=== PATIENT | female | born 1945 | race Caucasian/White ===

== ENCOUNTER 2017-03-14 18:34 | Inpatient (IN) | payer MEDICARE, BC ==
[~2017-03-14] VITALS: Ht 152.4 cm; Wt 89.4 kg
--- NOTE | ~2017-03-14 | HP ---
PATIENT'S NAME: BUTCH ESTEBAN [facility] AGE: 71 Y [address] ROOM: [address] [place] [id number] LOCATION: [facility] ADMIT DATE: 03/14/2017 History & Physical DISCHARGE DATE: FAMILY PHYSICIAN: PHYSICIAN, UNKNOWN ATTENDING PHYSICIAN: DAMARIS OJ DATE OF SERVICE: CHIEF COMPLAINT: Stroke. HISTORY OF PRESENT ILLNESS: A 71-year-old lady with a past medical history of hypertension and multilevel spinal stenosis was admitted to the outside facility for progressing generalized as well as lower extremity weakness. A CAT scan at that time was done, which did show old lacunar infarcts. She was admitted there for physical therapy in the swing bed where she progressively got Dwarf today. She was altered mental status and was having weakness on her right side of the body and she was transferred here for further medical care. She did have an MRI at the outside facility, which did show an acute stroke lacunar type on the left. On my encounter, she is answering questions intermittently and she is not alert and oriented with flat affect and intermittently following commands. On inquiry, she is not able to give me a complete history, but she states that she is having weakness all over, but does not complain of any chest pain, any shortness of breath, any palpitations, any abdominal pain, constipation, diarrhea, headache, trouble with the eyes, or any extremity swelling. REVIEW OF SYSTEMS: All other systems reviewed and were negative except what is mentioned in the HPI. PAST MEDICAL HISTORY: Hypertension, back pain, and lacunar infarcts. ALLERGIES: NO KNOWN DRUG ALLERGIES. SOCIAL HISTORY: Occasional smoker. No tobacco abuse. FAMILY HISTORY: Attempted to obtain from outside facility and was reviewed and was negative for any premature coronary artery disease. PATIENT'S NAME: RACHNA ESTEBANCY Yogi [facility] AGE: 71 Y [address] ROOM: [id number] [place], [place] [address] LOCATION: GI ADMIT DATE: 03/14/2017 History & Physical DISCHARGE DATE: FAMILY PHYSICIAN: PHYSICIAN, UNKNOWN ATTENDING PHYSICIAN: DAMARIS JO MEDICATIONS: Being reconciled right now. PHYSICAL EXAMINATION: VITAL SIGNS: Blood pressure 146/76, respiratory rate 16, heart rate 62, and afebrile. GENERAL: No acute distress. Alert and oriented only to herself. HEENT: Head: Atraumatic, normocephalic. Eyes: Nonicteric. No pallor. Oropharynx: Very dry mucous membranes. CARDIOVASCULAR: S1 and S2. No murmurs, gallops, or rubs. LUNGS: Clear to auscultation bilaterally. ABDOMEN: Soft, nontender, and nondistended. Bowel sounds are present. EXTREMITIES: No clubbing, cyanosis, or edema. PSYCHIATRY: Very flat affect. Low volume speech. NEUROLOGIC: Very hard to perform secondary to the patient's noncooperation, but grossly she does have 3/3 power in both lower extremities and 4/5 power in bilateral upper extremities. Reflexes in the lower extremities are diminished. On gross examination, no cranial nerve deficit can be found. SKIN: No bruises or rashes noted. ENDOCRINE: No myxedema or thyromegaly noted. LABORATORY DATA: Lab work from outside facility showed a white count of 10, hemoglobin of 11, and platelets of 226. Sodium was found to be 146, potassium of 3.0, chloride of 101, bicarb of 32, BUN of 41, creatinine of 1.2, and calcium of 9.5. MRI was repeated today of the head, which was positive for stroke showing confluent large lacunar type infarct in mid left pan radiata corresponding to the patient's right weakness. It also showed advanced vasculopathic white matter changes, which would be advanced for any age. ASSESSMENT: 1. Acute ischemic stroke/lacunar stroke. 2. Vasculopathic dementia. 3. Acute kidney injury. 4. Hypertension. 5. Hypernatremia. 6. Hypokalemia. PLAN: We are going to admit this lady and start the stroke pathway. MRI and CT scan are already done. We will obtain a Neurology consultation in the morning and order a CTA if recommended by Neurology. Meanwhile, we will correct her hypernatremia with hypotonic fluids and replace her potassium. We will start her on aspirin and statin. Neuro checks and lab monitoring will be done. We PATIENT'S NAME: BUTCH ESTEBAN [facility] AGE: 71 Y [address] ROOM: [place] [address] LOCATION: [facility] ADMIT DATE: 03/14/2017 History & Physical DISCHARGE DATE: FAMILY PHYSICIAN: PHYSICIAN, UNKNOWN ATTENDING PHYSICIAN: DAMARIS JO are also going to obtain HbA1c as well as TSH level. PT, OT, and rehab consultation will be made. Potassium is going to be replaced. We will follow up on this patient and make further recommendations. MD DOM LIEBERMAN/caro /[id number] D: [id number] T: [id number] HISTORY & PHYSICAL
--- NOTE | ~2017-03-14 | CON ---
PATIENT'S NAME: BUTCH ESTEBAN [facility] AGE: 71 Y [address] ROOM: [address] [address] LOCATION: GICU ADMIT DATE: 03/14/2017 Consultation DISCHARGE DATE: FAMILY PHYSICIAN: PHYSICIAN, UNKNOWN ATTENDING PHYSICIAN: DAMARIS JO REFERRING PHYSICIAN: DAMARIS COLE MD A consult for Dr. Schaeffer, hospitalist. HISTORY OF PRESENT ILLNESS: This 71-year-old is referred for rehab evaluation, admitted on 03/14/2017. Per my looking at her notes, she is unable to give any history, and my examination and my notes are from the chart and from examination of the patient herself. She was admitted with progressive weakness and altered mental status. She herself unable to give history. She does not complain now of any pain. No shortness of breath. No fever. No cough. Denied any stress at the present time. She answers questions only very much short, one word or two words, and she has flat affect and looks at the ceiling throughout all day. Her voice is clear and not wet. Does not have facial droop at the present time. Shook her head that she has no visual problems. Can hear well. Her voice, as I mentioned, clear. Tongue and soft palate are moving symmetrical; however, she remains in a dazed status. Breathing normally, and not in acute distress. PAST MEDICAL HISTORY: Past history of significance that I could gather is history of hypertension and chronic back pain. PHYSICAL EXAMINATION: GENERAL: She is, at the present time, alert, not oriented. VITAL SIGNS: Blood pressure 135/62, temperature 98.2, pulse 52, and respiration rate 18. She is 5 feet tall and weighs 87.9 kg. NEUROLOGIC: She can move all 4 seemingly to me. It is the right side that is a little bit less coordinated and probably less strong in comparison to the left. At the present time, she is continent of her bowel and bladder. CHEST: Clinically clear. HEART: Regular sinus rhythm. ABDOMEN: Soft. MEDICATIONS: She is on the following medications: 1. Lipitor. 2. Glucagon. 3. Dextrose. 4. Glucose. PATIENT'S NAME: BUTCH ESTEBAN [facility] AGE: 71 Y [address] ROOM: [id number] [place], [place] [address] LOCATION: [facility] ADMIT DATE: 03/14/2017 Consultation DISCHARGE DATE: FAMILY PHYSICIAN: PHYSICIAN, UNKNOWN ATTENDING PHYSICIAN: DAMARIS JO 5. Insulin aspartate. 6. Aspirin. 7. Tylenol. 8. Potassium chloride. 9. Labetalol p.r.n. ASSESSMENT AND PLAN: She will be, at the present time, initiated on PT, OT, and speech. Please see the orders. I will continue to follow on her alongside with you, and if she is unable to go home, fairly able to be managed on outpatient basis. I will be happy to take her to rehab. Thank you for this referral. MD MERRILL ARGUELLES/carmenl /[id number] d: 03/15/17 1139 t: 03/16/17 0810, CONSULTATION REPORT
--- NOTE | ~2017-03-14 | CON ---
PATIENT'S NAME: BUTCH ESTEBAN [facility] AGE: 71 Y [address] ROOM: [id number] [place], [place] [address] LOCATION: GICU ADMIT DATE: 03/14/2017 Consultation DISCHARGE DATE: FAMILY PHYSICIAN: PHYSICIAN, UNKNOWN ATTENDING PHYSICIAN: DAMARIS JO DATE OF CONSULTATION: 03/15/2017 REFERRING PHYSICIAN: DAMARIS COLE MD REASON FOR CONSULTATION: The patient was seen on neurologic consultation at the request of Dr. Nam Mcduffie on 03/15/2017. HISTORY OF PRESENT ILLNESS: Ms. Esteban is a 71-year-old female, who had previously been seen in Neurologic Clinic for consultation back in November 22, 2016. She was sent to our clinic for evaluation of potential Parkinson's disease. Over the course of the past year, she has been reported to have much more slowing in her gait. Initial symptoms of slowing and increased tone had been noted in her left upper extremity where there was a case to be made that she has idiopathic Parkinson's due to her presentation that was asymmetrical. She was clearly noted to be bradykinetic with a stooped posture, decreased arm swing on the left, increasing hypo-mimicry or facial expression was blunted. Her other issue at that time, was chronic low back pain for which she was experiencing symptoms of lumbar claudication and she was finding it difficult to get around such as doing shopping at home due to extreme low back pain radiating into the back of her legs. The patient did have a history of at least two back procedures back in November and April of 2016. A history of cervical surgery determined that the patient has multilevel spinal stenosis, actually ended up coming to the [facility] for workup for her low back pain as well as lower extremity weakness. Over the past week, the patient's had said that she had gotten much more generalized weak than usual as well as potentially some more focal weakness now this time on the right arm and leg. Per the says that she was not really moving the right extremity very well. At [facility], a CAT scan was performed, which showed some evidence of an acute or subacute stroke into the left putamen region of the brain likely consistent with the patient presenting with more focal slowing of the right side. The patient did not have any particular new symptom other than some motor weakness, but was possibly having some difficulty in word finding as well as naming objects and parts of the objects she still has presently. Based upon the evidence that this is a somewhat new stroke into the left basal ganglia and may be associated with some mild aphasia. The patient was transferred to our hospital for further workup. Furthermore at [facility], the patient was noted to have an elevated TSH to 177 at our hospital and confirmed at [facility] also elevated to that PATIENT'S NAME: BUTCH ESTEBAN [facility] AGE: 71 Y [address] ROOM: [id number] [place], [place] [address] LOCATION: [facility] ADMIT DATE: 03/14/2017 Consultation DISCHARGE DATE: FAMILY PHYSICIAN: PHYSICIAN, UNKNOWN ATTENDING PHYSICIAN: DAMARIS JO. Thus upon her admission to the hospital, her mental status was considered as a presentation for myxedema type of confusion with some mild aphasia over the past 48 hours upon her admission to the hospital. She started to improve in answering questions appropriately, but it was clear that she still had difficulty with naming objects as well as orientation to time and situation. PRIOR MEDICAL HISTORY: History of hypertension, chronic low back pain, and two surgeries on her back in 2016. SOCIAL HISTORY: She denies any alcohol use. She was a former smoker. She lives with her , who is present and very hard of hearing. Daughter was also present today. ALLERGIES: NO KNOWN DRUG ALLERGIES. FAMILY HISTORY: Not obtainable presently. REVIEW OF SYSTEMS: Stalin presented with new onset of right upper extremity, right lower extremity subtle weakness that seems to be improving of the course of the last 48 hours. She also had deficits with cognition and confusion to time, place, location, and also diminished speech output. Furthermore, she was noted to have aphasia to identifying objects and parts of objects, and basic reading. The aphasia aspect seem to be improving over the past 48 hours of her admission. PHYSICAL EXAMINATION: GENERAL: The patient was sitting upright in the bed. She looked happy and content. She answered basic questions appropriately with yes or no answers. She was confused as to location, but did not appear to be agitated. She was able to read all the words on our aphasia card including full sentences and had improvement in naming animals, which could not recall even one out of five objects after 2 minutes as well as not perform high functioning testing such as drawing or writing out the words that she sees. She did not appear to be tired. She had a bit of low volume to her voice. She noted to have decreased facial expression. That was consistent baseline with her Parkinson's. She is noted to likely have idiopathic Parkinson's disease. She presented with left upper extremity increased tone than what we see today on physical exam with some mild weakness in her right upper extremity. The rest of the review of systems is within normal limits. PATIENT'S NAME: BUTCH ESTEBAN [facility] AGE: 71 Y [address] ROOM: [id number] [place], [place] [address] LOCATION: [facility] ADMIT DATE: 03/14/2017 Consultation DISCHARGE DATE: FAMILY PHYSICIAN: PHYSICIAN, UNKNOWN ATTENDING PHYSICIAN: DAMARIS JO VITAL SIGNS: Pulse was 62 and regular, respiration rate 12, blood pressure 146/76, temperature is afebrile. Cranial nerves 2 through 12 was intact. Motor exam revealed generalized give-way weakness in all the limbs, but particularly a 4/5 power in the right upper extremity, but full power in the right lower extremity. There is slight increased tone in the left upper extremity. No evidence of any symmetrical tremors. She does not have any pain into her muscles. She withdraws to pain easily. There was normal sensation to light touch. On testing of [id number], the patient does this very slowly, but adequately there is no evidence of any dysmetria. There is no dysdiadochokinesis on testing. IMPRESSION: Ms. Esteban comes in with what appears to be an acute or subacute stroke into the left basal ganglia. Often basal ganglia strokes are associated with some mild aphasia, which should improve over the course of time. She actually is making some very good improvement even after 48 hours being in the hospital; however, the confusion that she has for self and for knowing the month and season would not be consistent with the patient having a small subcortical stroke. This is likely associated with global confusion associated hypothyroidism. Therefore, it is recommended that the patient receive IV thyroid replacement. From a standpoint of whether the patient truly has Parkinson's disease or her global slowing in mentation, being depressed was part of a syndrome of hypothyroidism. It is best that we hold her Parkinson's medications, which included Sinemet dose, reassess her in a few weeks in Neurology office when her thyroid function gets back to normal. We did have an MRI of the brain at the time of this dictation that shows the evidence for a subcortical stroke into the left basal ganglia. Distant with the patient having some mild subtle weakness on the right side, but this is also improving presently. For poststroke management, we should keep the patient on Plavix 75 mg daily as well as atorvastatin 80 mg p.o. at bedtime. The patient is currently being supplemented with levothyroxine 75 mcg per day, which is switched to oral root delivery. We would be glad to see Ms. Esteban on neurologic follow up in our office. MD CURT MOLINA/carmenl /[id number] d: 03/25/175 t: 03/25/17 1710, CONSULTATION REPORT
--- NOTE | ~2017-03-14 | DS ---
PATIENT'S NAME: BUTCH ESTEBAN [facility] AGE: 71 Y [address] ROOM: [place] [address] LOCATION: GPCU ADMIT DATE: 03/14/2017 Discharge Summary DISCHARGE DATE: 03/28/2017 FAMILY PHYSICIAN: Physician, Unknown ATTENDING PHYSICIAN: Jaren Marc PRIMARY DIAGNOSES: 1. Myxedema coma. 2. Profound hypothyroidism. 3. Supraventricular tachycardia. 4. Cerebrovascular disease with subacute lacunar infarcts. 5. Essential hypertension. 6. Moderate protein-calorie malnutrition. 7. Hypernatremia. 8. Chronic constipation. 9. Morbid obesity. 10. Diabetes mellitus type 2. 11. Deconditioning. OPERATIONS AND PROCEDURES: MRI scan of the brain obtained on 03/21/2017, demonstrated subacute infarcts in the left cerebrum and subacute ischemic infarcts in the right frontal subcortex. MRA of the brain and neck on 03/21/2017, negative for any acute process. Echocardiogram obtained on 03/19/2017, demonstrated an ejection fraction of 65% with concentric hypertrophy, moderate. Carotid Doppler ultrasound was obtained on 03/21/2017, demonstrated 1% to 39% plaque and stenosis bilaterally. HISTORY OF PRESENTING ILLNESS AND REASON FOR ADMISSION: Please refer to the H and P dictated on 03/14/2017. HOSPITAL COURSE: The patient was admitted to hospital as noted above with a presumptive diagnosis of stroke symptoms. She was seen and evaluated at an outside facility initially where imaging studies suggested the presence of old lacunar infarct. She was transferred here where stroke pathway was initiated. Additional MRI scan imaging revealed the findings as outlined above. Her clinical condition was relatively poor and she was slow to improve. Some additional laboratory workup did reveal the presence of profound hypothyroidism. It was felt that she was experiencing myxedema coma. She was placed on replacement therapy with Cytomel. Her laboratory studies were monitored and showed improvement within the first week declining by approximately 50%. Initial TSH was 177 and by the first week had resolved to 78 with a free T4 of 0.6. It was planned to continue the Cytomel and continue weekly followup until normalization of her thyroid studies. PATIENT'S NAME: BUTCH ESTEBAN [facility] AGE: 71 Y [address] ROOM: [place] [address] LOCATION: GPCU ADMIT DATE: 03/14/2017 Discharge Summary DISCHARGE DATE: 03/28/2017 FAMILY PHYSICIAN: Physician, Unknown ATTENDING PHYSICIAN: Jaren Marc She did receive physical therapy, occupational therapy, and speech therapy evaluations. Clinical progress remained slow, but generally positive. She did have a rehab evaluation, but was not felt to be a suitable candidate at this point. She did develop hypernatremia. This was felt to be due to free water deficit. Her oral intake was actually fairly good and she was encouraged to take more free water. Continued clinical follow up is recommended. Eventually, arrangements were made for her to be transferred to [facility] for continued restorative care including physical therapy, occupational therapy, and speech therapy, and eventual consideration for inpatient rehab. DISCHARGE INSTRUCTIONS: DIET: ADA 1800-calorie per day as tolerated. ACTIVITY: As tolerated. MEDICATIONS: 1. Amlodipine 5 mg p.o. daily. 2. Aspirin 81 mg p.o. daily. 3. Atorvastatin 80 mg p.o. at bedtime. 4. Os-Dru 500 mg p.o. b.i.d. 5. Vitamin D 2000 units p.o. daily. 6. Plavix 75 mg p.o. daily. 7. Colace 100 mg p.o. b.i.d. 8. Insulin NovoLog per sliding scale. 9. Insulin detemir 5 units subcu at bedtime. 10. Liothyronine 2.5 mcg p.o. b.i.d. 11. Levothyroxine 75 mcg p.o. daily. 12. Lisinopril 20 mg p.o. daily. 13. Metoprolol 12.5 mg p.o. b.i.d. 14. Senna 1 tablet p.o. at bedtime. 15. Sertraline 50 mg p.o. at bedtime. 16. Torsemide 20 mg p.o. q.a.m. 17. Acetaminophen 650 mg p.o. or NV q.4 hours p.r.n. for pain or fever. 18. Dextrose 25 IV p.r.n. for hypoglycemia. 19. Glucagon 1 mg subcu p.r.n. for hypoglycemia. 20. Glucose tablets 16 grams p.o. daily p.r.n. for hypoglycemia. 21. Milk of magnesia 30 mL p.o. q.4 hours p.r.n. for pain. 22. Tramadol 50 mg p.o. q.4 hours p.r.n. for pain. FOLLOWUP: She will follow up with her primary care provider in [place] at [facility] within the next 5 to 7 days. There will be a weekly TSH and free T4 to be followed until normalization. She will have a BMP on 03/29/2017 PATIENT'S NAME: BUTCH ESTEBAN [facility] AGE: 71 Y [address] ROOM: [place] [address] [facility] ADMIT DATE: 03/14/2017 Discharge Summary DISCHARGE DATE: 03/28/2017 FAMILY PHYSICIAN: Physician, Unknown ATTENDING PHYSICIAN: Jaren Marc and again on 03/31/2017. CONDITION ON DISCHARGE: Fair. Total time spent on discharge process 60 minutes. MD YESENIA DEGROOT/caro /[id number] d: 03/29/17 0241 t: 03/30/17 1726, DISCHARGE SUMMARY
--- NOTE | ~2017-03-14 | ECHO ---
Transthoracic Echocardiography Report (TTE) Demographics Patient Name BUTCH ESTEBAN Date of Study 03/19/2017 Patient Number [id number] Visit Number [id number] Date of 1945 Room Number O8005VJ Gender Female Number Age 71 year(s) Referring [facility] Yard Inspector Marci Acevedo RDCS, RVT, Physician MD GALVEZMS, PHYSICAL THERAPIST Tari Eastman DOCTOR NATUROPATHIC Physician Interpreting Canelo Brown A Training And Development Professional Physician MD Supervising Ordering MD/MLP Physician Nurse Stress Peanut Grader Conclusions Summary Technically difficult exam. The estimated left ventricular ejection fraction is 65%. Moderate concentric hypertrophy. Normal valvular function. Mild mitral annular calcification. Cannot exclude chordal or valvular mitral systolic anterior motion. There is no evidence of a patent foramen ovale by color Doppler . Small circumferential pericardial effusion. There is no echocardiographic evidence of cardiac tamponade. Procedure Type of Study TTE procedure:2D Echocardiogram, M-Mode, Doppler , Color Doppler. Procedure Date Date: 03/19/2017 Start: 06:28 AM Study Location: Inpatient Portable Technical Quality: Poor visualization due to lung interference. Indications:CVA. Appropriate Use Criteria: 9 Patient Status: Routine Rhythm: NSR HR: 65 bpm BP: 128/75 mmHg M-Mode/2D Measurements LV Diastolic Dimension: 4.01 cm LV Systolic Dimension: 2.31 cm LV Septum Diastolic: 1.43 cm LV PW Diastolic: 1.46 cm AO Root Dimension: 2.8 cm Cardiac Output: 3.48 l/min AV Cusp Separation: 1.7 cm RV Diastolic Dimension: 2.47 cm LA volume: 32 ml LVOT: 1.9 cm RV Base: 2.9 cm LVOT VTI: 18.9 cm RV Mid: 2.6 cm LV Stroke volume: 53.56 ml TAPSE: 2.1 cm TDI-S': 15 cm/s Doppler Measurements AV Peak Velocity: 1.12 m/s MV Peak E-Wave: 0.6 m/s AV Peak Gradient: 5.02 mmHg MV Peak A-Wave: 0.96 m/s AV Mean Gradient: 3 mmHg MV E/A Ratio: 0.63 LVOT Peak Velocity: 0.99 m/s MV P1/2t: 97 msec TR Gradient:11.7 mmHg PV Peak Velocity: 0.85 m/s Estimated RAP:8 mmHg PV Peak Gradient: 2.9 mmHg Estimated RVSP: 20 mmHg Estimated PASP: 19.7 mmHg E' Septal Velocity: 0.05 m/s A' Septal Velocity: 0.1 m/s E' Lateral Velocity: 0.04 m/s A' Lateral Velocity: 0.09 m/s Findings Left Ventricle Normal to hyperdynamic left ventricular function. The left ventricle is normal in size . Moderate concentric left ventricular hypertrophy. Diastolic assessment reveals Grade I diastolic dysfunction. Patient is unable to valsalva, therefore unable to assess for subaortic gradients. Diastolic assessment reveals Grade I diastolic dysfunction . Right Ventricle Normal right ventricle structure and function. Left Atrium Normal left atrial size. Right Atrium Normal right atrial size. Mitral Valve Trivial mitral regurgitation by color Doppler. Mild mitral annular calcification. Mild calcification of the mitral valve. Cannot rule out chordal or valvular systolic anterior motion. Aortic Valve Normal aortic valve structure and function. There is trivial aortic regurgitation. Tricuspid Valve Normal tricuspid valve structure and function. Insufficient tricuspid regurgitant waveform to assess pulmonary pressures. Pulmonic Valve The pulmonic valve is not well visualized. Pericardial Effusion Small circumferential pericardial effusion. There is no echocardiographic evidence of cardiac tamponade. Miscellaneous Suboptimal subcostal window to evaluate the IVC and interatrial septum. Pleural Effusion No evidence of pleural effusion. Signature dtt: Thomas Lemos dtd: 03/19/17 0628 Physician Self Edit
--- NOTE | ~2017-03-14 | ENPV ---
Carotid Duplex Study Demographics Patient Name BUTCH ESTEBAN Date of Study 03/20/2017 Patient Number [id number] Gender Female Date of 1945 Age 71 Visit Number [id number] Height 59.84 Accession Number [id number] Weight 189.6 Referring Tori Tapia MD Interpreting Ajith Humphries MD Physician Tari Eastman CRNA Physician Physician Ordering Physician Tori Tapia Data Warehouse Analyst [employer] Sales Executive Jalen Powell [facility] Conclusions Summary The right internal carotid artery has mild, 1-39%, plaque and stenosis. The right vertebral artery is present with antegrade flow. The left internal carotid artery has mild, 1-39%, plaque and stenosis. The left vertebral artery is present with antegrade flow. Procedure Type of Study: Cerebral:Carotid, Carotid Doppler Bilateral. Indications for Study:CVA. Appropriate Use Criteria:9 Blood Pressure:Right arm 117/57 mmHg. Patient Status:Routine. Study Location:Inpatient Portable. Technical Quality:Adequate visualization. Velocities are measured in cm/s ; Diameters are measured in cm Carotid Right Measurements Carotid Left Measurements + +--------+--------+ + + + +--------+ --------+ + + !Location !PSV !EDV !Angle !%Stenosis ! !Location !PSV ! EDV !Angle !%Stenosis ! + +--------+--------+ + + + +--------+ --------+ + + !Prox CCA !73 !14 !48 ! ! !Prox CCA !124 ! 13 !60 ! ! + +--------+--------+ + + + +--------+ --------+ + + !Dist CCA !85 !19 !60 ! ! !Dist CCA !80 ! 13 !60 ! ! + +--------+--------+ + + + +--------+ --------+ + + !Prox ICA !62 !17 !60 ! ! !Prox ICA !69 ! 9 !56 ! ! + +--------+--------+ + + + +--------+ --------+ + + !Dist ICA !55 !16 !28 ! ! !Dist ICA !48 ! 13 !26 ! ! + +--------+--------+ + + + +--------+ --------+ + + !Prox ECA !112 ! !60 ! ! !Prox ECA !76 ! !36 ! ! + +--------+--------+ + + + +--------+ --------+ + + !Vertebral !30 ! !48 ! ! !Vertebral !43 ! !60 ! ! + +--------+--------+ + + + +--------+ --------+ + + !Subclavian !56 ! ! ! ! !Subclavian !105 ! ! ! ! + +--------+--------+ + + + +--------+ --------+ + + - There is antegrade vertebral flow noted on the right side. - There is antegrade verte bral flow noted on the left side. - Add'l Measurements:ICAPSV/CCAPSV 0.85.ICAEDV/CCAEDV 1.21. - Add'l Measurements:ICAPS V/CCAPSV 0.56.ICAEDV/CCAEDV 0.98. Signature dtt: JULIANA TOBAR dtyuni: 03/20/17 1536 Physician Self Edit
--- NOTE | ~2017-03-14 | DS ---
PATIENT'S NAME: BUTCH ESTEBAN [facility] AGE: 71 Y [address] ROOM: [id number] [place] [id number] LOCATION: [facility] ADMIT DATE: 03/14/2017 Discharge Summary DISCHARGE DATE: 03/25/2017 FAMILY PHYSICIAN: Physician, Unknown ATTENDING PHYSICIAN: Jaren Marc PRIMARY DIAGNOSES: 1. Myxedema coma. 2. Severe hypothyroidism. 3. Lacunar infarcts with residual left-sided weakness. 4. Diabetes mellitus, type 2. 5. Essential hypertension. 6. Acute kidney injury. 7. Hypernatremia. 8. Depression. 9. Dyslipidemia. 10. Moderate protein-calorie malnutrition. 11. Morbid obesity. 12. Generalized weakness. OPERATIONS AND PROCEDURES: MRI scan of the brain was obtained on 03/21/2017, demonstrating subacute ischemic infarct in the left cerebrum and subacute ischemic infarct in the right frontal subcortex. MRA obtained on 03/21/2017, was normal. MRA of the neck on 03/21/2017, demonstrates no stenosis. Echocardiogram obtained on 03/19/2017, demonstrated an ejection fraction of 65%, moderate concentric hypertrophy. Carotid Dopplers obtained on 03/21/2017, demonstrated 1% to 39% plaque and stenosis bilaterally. HISTORY OF PRESENTING ILLNESS AND REASON FOR ADMISSION: Please refer to the H and P dictated on 03/14/2017. HOSPITAL COURSE: The patient was admitted to the hospital as noted above with a presumptive diagnosis of stroke. She was seen and evaluated at an outside facility where imaging studies showed old lacunar infarcts. Additional MRI scan imaging revealed findings as outlined above. She was managed on the stroke pathway. Clinical condition was poor and she was very slow to improve. Additional workup did reveal the presence of significant and profound hypothyroidism. She was felt to be experiencing myxedema coma. Her initial laboratory studies revealed a TSH of 177 with a free T4 of 0.2. T3 was not assessed. She was started on replacement therapy and clinical condition gradually improved. Within the first week, repeat TSH was approximately 50% with an improved free T4 of 0.6. It was recommended to continue with replacement therapy and continue clinical monitoring as well as weekly monitoring of TSH and free T4 until approaching the normal range. PATIENT'S NAME: BUTCH ESTEBAN [facility] AGE: 71 Y [address] ROOM: [id number] [place], [place] [address] LOCATION: [facility] ADMIT DATE: 03/14/2017 Discharge Summary DISCHARGE DATE: 03/25/2017 FAMILY PHYSICIAN: Physician, Unknown ATTENDING PHYSICIAN: Jaren Marc She received physical therapy, occupational therapy, and speech therapy evaluations. Clinical progress was slow, but positive. She did have a rehab evaluation. She was hemodynamically stable over the course of her hospital stay. By the end of the day 11th day of her hospital stay, it was felt she would be stable enough for discharge to inpatient rehab for continued therapy and restorative care. DISCHARGE INSTRUCTIONS: DIET: ADA 1800-calorie per day as tolerated. ACTIVITY: As tolerated. She will have physical therapy, speech therapy, and occupational therapy. MEDICATIONS: 1. Amlodipine 5 mg p.o. daily. 2. Aspirin 81 mg p.o. daily. 3. Atorvastatin 80 mg p.o. at bedtime. 4. Os-Dru 500 mg p.o. b.i.d. 5. Vitamin D 2000 units p.o. daily. 6. Plavix 75 mg p.o. daily. 7. Colace 100 mg p.o. b.i.d. 8. Heparin subcu 5000 units t.i.d. 9. Insulin NovoLog per mild sliding scale. 10. Insulin detemir 5 units subcu at bedtime. 11. Levothyroxine 75 mcg p.o. daily. 12. Liothyronine 2.5 mcg p.o. b.i.d. 13. Lisinopril 20 mg p.o. daily. 14. Senna 1 tablet p.o. at bedtime. 15. Sertraline 50 mg p.o. at bedtime. 16. Torsemide 20 mg p.o. q.a.m. 17. Acetaminophen 650 mg PA q.4 hours p.r.n. or p.o. q.4 hours p.r.n. for pain or fever. 18. Dextrose 25 mL IV p.r.n. for hypoglycemia. 19. Glucagon 1 mg subcu p.r.n. for hypoglycemia. 20. Glucose 16 grams p.o. daily p.r.n. for hypoglycemia. 21. Lidocaine 1% cream applied topically for IV starts. 22. Milk of magnesia 30 mL p.o. q.4 hours p.r.n. 23. Tramadol 50 mg p.o. q.4 hours p.r.n. for pain. FOLLOWUP: She will follow up on the inpatient rehabilitation unit by Dr. Portillo as well as continued followup by the Hospitalist Service. PATIENT'S NAME: BUTCH ESTEBAN [facility] AGE: 71 Y [address] ROOM: [place] [address] LOCATION: [facility] ADMIT DATE: 03/14/2017 Discharge Summary DISCHARGE DATE: 03/25/2017 FAMILY PHYSICIAN: Physician, Unknown ATTENDING PHYSICIAN: Jaren Marc CONDITION ON DISCHARGE: Fair. Total time spent on discharge process 45 minutes. MD YESENIA DEGROOT/caro /[id number] d: 03/26/170 t: 03/26/17 1729, DISCHARGE SUMMARY
--- NOTE | 2017-03-15 01:21 | NUR ---
Significant Event: Follow up:
--- NOTE | 2017-03-15 02:29 | NUR ---
Arrived by ambulatory cart at 1954. Patient came from [facility] and has been there since 03/04 for severe dehydration, fatigue, weakness, and altered mental status. Patient had MRI done today in [place] due to increased confusion and aphasia and L)ischemic stroke found. Arrived with pierce catheter and right forearm peripheral IV. History of back surgeries and hypertension. Full code.
--- NOTE | 2017-03-15 02:44 | NUR ---
Significant Event: Admitted last night at 1954. Disoriented x3. Follows commands with weakness to upper and lower extremities (more so on the right). NIHSS 25. L)ischemic stroke found on MRI in [facility] yesterday. Patient has been in [facility] since 03/04. Peripheral IV running D5 1/2 NS at 125hr. Receiving IV K+ throughout the night due to 3.2 K+ level. Q6h accuchecks. Shore catheter present on admission. Follow up: Neuro consult today
[2017-03-15 05:28] LABS: BASOPHIL % 0.1 %; EOSINOPHIL # 0.1 K/uL (0.0-0.5); EOSINOPHIL % 0.5 %; HEMATOCRIT 35.2 % (33.0-46.0); HEMOGLOBIN 11.2 g/dL (10.0-15.0); IMMATURE GRANULOCYTE # 0.1 K/uL (0.0-0.3); IMMATURE GRANULOCYTE % 0.9 %; LYMPHOCYTE # 0.6 K/uL (0.8-4.0); MCH 33.6 pg (27.0-34.0); MCHC 31.8 gm/dL (32.0-36.5); MCV 105.7 fl (83.0-98.0); MONOCYTE # 0.5 K/uL (0.0-1.0); MONOCYTE % 5.7 %; MPV 12.2 fl (9.4-12.4); NEUTROPHIL # (ANC) 8.3 K/uL (1.8-7.8); NEUTROPHIL % 86.8 %; NRBC % 0 /100WBC (0-0.00); PLATELET COUNT 205 K/uL (150-450); RBC 3.33 M/uL (3.50-5.50); RDW-CV 14.7 % (11.9-14.6); WBC 9.5 K/uL (4.0-11.0)
[2017-03-15 05:49] LABS: ALBUMIN 3.5 gm/dL (3.5-5.0); CALCIUM 8.8 mg/dL (8.5-10.5); CREATININE 1.1 mg/dL (0.5-1.1); TOTAL BILIRUBIN 0.4 mg/dL (0.0-1.5); TOTAL PROTEIN 7.5 g/dL (6.0-8.4)
--- NOTE | 2017-03-15 08:12 | NUR ---
ROUTINE CVA NUTRITION ED CONSULT RECEIVED. WILL COMPLETE DIET ED APPROPRIATE PRIOR TO DISMISSAL.
[2017-03-15] MEDS ORDERED: DEMADEX20 MG (14:14)
[2017-03-15] MEDS ORDERED: NEURONTIN100 MG PO (14:14)
[2017-03-15] MEDS ORDERED: DEMADEX20 MG PO (14:15)
[2017-03-15] MEDS ORDERED: PRINIVIL (ZESTR20 MG PO (14:16)
[2017-03-15] MEDS ORDERED: MEDROL4 MG PO (14:16)
[2017-03-15] MEDS ORDERED: COMTAN200 MG PO (14:18)
[2017-03-15] MEDS ORDERED: SINEMET 25-1001 EACH PO (14:19)
[2017-03-15] MEDS ORDERED: ULTRAM50 MG PO (14:19)
[2017-03-15] MEDS ORDERED: TYLENOL325 MG PO (14:23)
--- NOTE | 2017-03-15 18:19 | NUR ---
Significant Event: opens eyes spontaneously. NIHSS=5. does not respond to orientation questions except for second assessment when she stated her last name was "damien". does answer a few questions "no" such as are you in pain, do you have any numbness/tingling or dullness of sensation. follows commands with equal week strength throughout. speech is clear when she does speak. TSH noted to be 177 today. cortisone 100mg IV q 8 hours ordered, synthroid 200 MCG IV now then 50mg po daily ordered and cytonel 5 MCG po now ordered then 2.5 po Q 8 hours x 3. Normal saline at 50ml/hr. Takes meds whole. Regular diet. full lift with transfers. Shore cath. Room air. Accuchecks Q 6 hours. Patient's and daughter were here today. He will not be able to return until Friday when he has someone to bring him to [place] because he cannot drive. He requested that the doctors/care management be updated he wishes for her to return to [facility] for rehab/strengthening when ready with his plan for her to return home eventually.
--- NOTE | 2017-03-16 05:33 | NUR ---
Significant Event: The patient is Alert, oriented to self at times. Denies Numbness and Tingling. Moves all extremities spontaneously and to command. Generalized weakness noted. NIHSS 6. Up with Full Lift. Repetitive at times and does well with yes/ no questions. Pupils are equal and reactive. Accu checks Q6H. Denies Pain. VSS. On room air. Shore draining yellow urine. Generalized bruising and edema. PIV to the Right forearm infusing NS at 50ml/hr. Needs help eating. Follow up:
--- NOTE | 2017-03-16 17:51 | NUR ---
Significant Event: patient is alert. only responded first name to aftn assessment. did not respond to any further orientation questions. does respond yes/no appropriately. does follow directions. NIHSS=6. Denies pain. generalized weakness. tele- NSR. room air. pierce cath. No BM. IV right forearm with NS infusing at 50ml/hr. full lift with transfers. stood with therapy but would not take steps. takes meds whole. Cardiac diet.
--- NOTE | 2017-03-17 04:52 | NUR ---
Significant Event: The patient is Alert and Oriented x1, knows her name at times. Answers simple questions, good with yes/no questions. NIHSS 6. Denies Numbness and Tingling. Moves all extremities spontaneously and to command. Generalized weakness. Up with Full Lift. Denies Pain. VSS, On room air. Shore Draining yellow urine. Generalized edema. Scattered bruising to extremities. PIV to the Right Forearm infusing NS at 50ml/hr. Accu checks ACHS. Follow up:
[2017-03-17 04:59] LABS: HEMOGLOBIN 10.7 g/dL (10.0-15.0); IMMATURE GRANULOCYTE # 0.1 K/uL (0.0-0.3); LYMPHOCYTE # 0.6 K/uL (0.8-4.0); LYMPHOCYTE % 5.7 %; MCH 34.4 pg (27.0-34.0); MCHC 33.4 gm/dL (32.0-36.5); MCV 102.9 fl (83.0-98.0); MONOCYTE # 0.4 K/uL (0.0-1.0); MONOCYTE % 3.8 %; MPV 12.1 fl (9.4-12.4); NEUTROPHIL % 89.5 %; NRBC % 0 /100WBC (0-0.00); PLATELET COUNT 189 K/uL (150-450); RBC 3.11 M/uL (3.50-5.50)
[2017-03-17 05:12] LABS: ALBUMIN 3.2 gm/dL (3.5-5.0); ANION GAP 11.5 (10.0-19.0); CALCIUM 8.7 mg/dL (8.5-10.5); POTASSIUM 3.5 mMol/L (3.7-5.1)
[2017-03-17 05:13] LABS: MAGNESIUM 2.8 mg/dL (1.8-2.6)
--- NOTE | 2017-03-17 09:03 | NUR ---
F/U D/T DIET ED CONSULT. PT A/O X 1. NO APPROPRIATE FOR NUTRITION ED. WILL ASSIST NEEDED.
--- NOTE | 2017-03-17 13:34 | NUR ---
Significant Event: VSS, DOES RUN HTN 160'S MOST OF THE TIME. PATIENT ALERT TO SELF ONLY. FOLLOWS COMMANDS. VERY SLOW TO RESPOND. GENERALIZED WEAKNESS. DENIES NUMBNESS/TINGLING. PUPILS 4MM, BRISK. 1-2+ EDEMA NOTED. LUNGS CLEAR AND DIM ON ROOM AIR. DENIES PAIN SO FAR THIS SHIFT. UP WITH FULL LIFT. IV IN RT FOREARM NOW SALINE LOCKED. CARDIAC DIET, 1:1 FEEDER. K+ TODAY WAS 3.5 SO 40 MEQ TOTAL OF KCL GOING TO BE GIVEN. STROKE EDUCATION GIVEN TODAY. NIHSS =5 Follow up: ALARMS. NEURO STATUS. ACCUCHECKS AC/HS. SWINGBED EVENTUALLY?
--- NOTE | 2017-03-17 16:00 | NUR ---
Pt does not have family in room and per note on the chart will be coming tomorrow and he would like the pt to return back to [facility] when ready. I did call Charito at [facility] and yes they had her there and will relook at her when closer to return. I did fax initial information to her today. WIll continue to follow.
--- NOTE | 2017-03-18 04:07 | NUR ---
Significant Event: Follow up: PATIENT ALERT AND ORIENTED TO SELF ONLY. FOLLOWS SIMPLE COMMANDS. GENERALIZED STIFFNESS AND WEAKNESS. DENIES NUMBNESS, TINGLING, AND PAIN THIS SHIFT. PUPILS 4MM/BRISK. 1-2+ EDEMA IN EXTREMITIES. LUNGS CLEAR AND DIMINISHED ON ROOM AIR. UP WITH FULL LIFT. VOIDS LIGHT YELLOW URINE VIA DARDEN CATHETER. 1:1 FEEDER ON CARDIAC DIET. ACCU CHECKS AC/HS. COMPLIANT WITH ALL CARES THIS SHIFT.
[2017-03-18 06:06] LABS: ALBUMIN 3.4 gm/dL (3.5-5.0); CALCIUM 8.7 mg/dL (8.5-10.5); CREATININE 0.9 mg/dL (0.5-1.1); PHOSPHORUS 2.7 mg/dL (2.5-4.9)
--- NOTE | 2017-03-18 16:16 | NUR ---
Introduced self and role of care management to pt's who is very [place] and her sister Eugenio. She stated her sister has not been really well since last April and it started with her back. She lately her mind is not as clear as it used to be. [facility] if [facility] the [facility] place for her. I did mention [facility] if qualifies but she got tearful and wanting to be closer to home. She see's Viktoria Fraser APRN there. They had more medical questions so I did go find Dr Valle and she will be down to speak with family along with pt. Will continue to follow.
--- NOTE | 2017-03-18 17:15 | NUR ---
Patient alert but disoriented X3. Patient follows commands well and responds appropriately to simple conversation. Denies numbness, tingling and pain. Vital signs stable. Lungs clear and dimished. O2 Sats stable on 1L. Shore catheter with 1250 mL output. Urine light orange with foul smell. 1:1 feeder on cardiac diet. Patient swallows food and thin liquids well. Accu checks AC/HS without need for insulin this shift. Patient remains a full lift.
--- NOTE | 2017-03-18 17:39 | NUR ---
03/18/17: MICHELLE MURRIETA RN HAS READ/REVIEWED ISABELLE ([facility] STUDENT) AND MINESH ([facility] STUDENT) CHARTING AND AGREES.
--- NOTE | 2017-03-19 05:06 | NUR ---
Significant Event: The patient is Alert and Oriented x1, knows her name most of the time. Aphasic, will answer simple questions and is good with yes/no questions. NIHSS 6. Pupils are equal and reactive. VSS. On 1L oxgen per NC. Up with Full Lift. Denies Pain. Generalized weakness noted. PIV to ther Right Forearm saline locked. 1:1 feeder. No BM on record since admit, scheduled BM meds given as well as a suppository, no results at this time. Bruising to her extremities. Abrasions to her arms. Generalized edema. Shore draining. Accu checks ACHS. Follow up:
--- NOTE | 2017-03-19 11:14 | NUR ---
A-SCREENED D/T LOS ALERT; ORIENTED X1. APHASIC. 1:1 FEEDER. GENERALIZED EDEMA HT: 60 IN. WT: 86.0 KG. BMI: 37.0. IBW: 45 KG LABS: NA 142, K+ 3.0, GLU 123, BUN 23, SMOKING PIPE MOUNTER 0.9, ALB 3.4 MEDS: CYTOMEL, LIPITOR, COLACE, SENOKOT, LEVEMIR, NOVOLOG (MILD SS), ULTRAM, PROTONIX. DIET RX: CARDIAC. PO INTAKE HAS BEEN 0-75%; AVG IS 47% EST NUTR NEEDS: 2814-1006 KCALS (15-20 KACLS/KG) 68-90 GM PROTEIN (1.5-2.0 GM/KG IBW) 1 ML FLUID/KCAL D-AT NUTRITION RISK W/INADEQUATE ORAL INTAKE R/T ALTERED APPETITE SECONDARY TO ALTERED LOC AEB INTAKE RECORDS, CHART REVIEW. I-START ENSURE COMPACT TID W/MEALS M/E-GOAL: PO INTAKE >/=50% BY NEXT F/U 1)F/U PO INTAKE, SUPPLEMENT TOLERANCE, AND POC IN 2-3 DAYS 2)ASSIST NEEDED
--- NOTE | 2017-03-19 12:56 | NUR ---
I called and spoke with Mariann and she thinks she would be a wonderful candidate for GIRP. Wondering when she would be ready and I thought end of week, w/e or early next week. WIll talk with md and see and follow.
--- NOTE | 2017-03-19 16:21 | NUR ---
Significant Event: PT ALERT; ORIENTED TO LAST NAME ONLY AT TIMES. SLOW TO RESPOND/APHASIC. FOLLOWS SIMPLE COMMANDS. PERRLA. VERY FLAT AFFECT. GENERALIZED EDEMA. O2 AT 1 LITER PER NASAL CANNULA. HAS HAD SEVERAL LOOSE BM'S THIS SHIFT. DARDEN D/C'D AT 1400; NO VOID YET. IV TO R)FA SALINE LOCKED. HEAVY 2-ASSIST/FULL LIFT. POOR APPETITE; 1:1 FEEDER. TAKES MEDICATIONS WHOLE, WITH WATER. DENIES ANY PAIN. AC/HS ACCUCHECKS WITH MILD SLIDING SCALE. Follow up: CONTINUE TO MONITOR.
--- NOTE | 2017-03-20 02:47 | NUR ---
Significant Event: Oriented to self. Aphasic and answers many yes/no questions without difficulty. 1-2L O2 NC throughout night. 2A full lift for transfers. Peripheral IV to right forearm SL'd. Frequent repositioning and incontinence. May need to crush medications today due to difficulty swallowing pill yesterday. ACHS accuchecks on mild scale and scheduled Levemir administered. Poor appetite. 1:1 feeding assistance. Weakness to upper and lower extremities. NIHSS 10. Denies pain throughout the night. Follow up:
--- NOTE | 2017-03-20 14:12 | NUR ---
Significant Event: VSS. PATIENT ALERT TO SELF ONLY. VERY SLOW TO RESPOND. FOLLOWS COMMANDS. GENERALIZED WEAKNESS NOTED. APHASIA. PUPILS 4MM, BRISK. TRACE EDEMA TO LOWER EXTREMITIES. LUNGS CLEAR AND DIM ON ROOM AIR. DENIES PAIN SO FAR THIS SHIFT. IV IN RT FOREARM SALINE LOCKED. UP WITH FULL LIFT. ALARMS ON FOR SAFETY. NIHSS= 11 TODAY. INCONTINENT OF URINE. ACCUCHECKS AC/HS. Follow up: NEURO STATUS. CRUSH MEDS IN APPLESAUCE EXCEPT THYROID MEDICINE. CAROTID DOPPLARS TO BE DONE TODAY.
--- NOTE | 2017-03-20 14:58 | NUR ---
I spoke with DR Valle regarding rehab and she will see pt and let me know maybe when. I did update Mariann today and will give sister/ a call and see what they think. Mariann maybe looking at this weekend. WIll touch base tomorrow.
[2017-03-21 06:10] LABS: CREATININE 1.1 mg/dL (0.5-1.1)
--- NOTE | 2017-03-21 07:06 | NUR ---
Significant Event: Oriented to self. 2A full lift for transfers. VSS. Aphasic and able to answer yes/no questions. 1L O2 NC. Peripheral IV to right forearm SL'd. Repositioned frequently and has frequent incontinence. Crush medications except thyroid medication due to difficulty swallowing pills. ACHS accuchecks and scheduled Levemir administered. Poor appetite, 1:1 feeding assistance. NIHSS 12. Denies pain or discomfort. Follow up:
--- NOTE | 2017-03-21 08:45 | NUR ---
A - NUTRITION F/U. A/O X 1. NO NEW LABS. WT UP 4# SINCE ADMIT. PT W/ 1+ EDEMA T/O. DIET: CARDIAC W/ ENSURE COMPACT TID. INTAKE SIP/BITES TO 75%. D - AT RISK W/ INADEQUATE ORAL INTAKE R/T DECREASED APPETITE AEB INTAKE RECORD. I - GOAL: 50-75% INTAKE BY DISMISSAL. M/E - REC LIBERALZING DIET TO REGULAR. WILL F/U IN 4-5 DAYS.
--- NOTE | 2017-03-21 12:59 | NUR ---
Significant Event: VSS. PATIENT ALERT TO SELF ONLY. FOLLOWS COMMANDS. GENERALIZED WEAKNESS. LUNGS CLEAR AND DIM ON 1 LITER. IV IN RT FOREARM SALINE LOCKED. UP WITH FULL LIFT. ALARMS ON FOR SAFETY. PATIENT DOWN FOR MRI/MRA AT THIS TIME. INCONTINENT OF BOWEL /BLADDER. ACCUCHECKS AC/HS. 1:1 FEEDER. Follow up: GIRP VS SWINGBED? NEURO STATUS. CRUSH MEDS
--- NOTE | 2017-03-21 17:20 | NUR ---
I spoke with sister Jenna on the phone this am and discussed dc plans regarding skilled and acute rehab. She wants the best for her and is fine with our rehab but is out of town so to call his son Teddy [phone] and talk with him because can not hear. I then spoke with DR Valle and Mariann and plan will be GIRP on Friday at 0900 and give it a chance. I called up Teddy and spoke with his Britney and discussed dc plans and acute rehab and [facility] and she states lets do the acute rehab and see and go from there. They will get her down to see her as often as they can and they are coming tomorrow. I told her GIRP on Friday and she agree's to this and will update . I did tell DR Valle. Will continue to follow.
--- NOTE | 2017-03-22 05:45 | NUR ---
Shift Summray: PATIENT DISORIENTED TO PERSON/PLACE. ORIENTED TO TIME OCCASSIONALLY. NIHSS 11. APHASIC. FLAT AFFECT. GENERALIZED WEAKNESS, FOLLOWS COMMANDS. TRACE EDEMA THROUGHOUT. VSS. PATIENT IS ON 1L NC. 1-1 FEEDER. DECREASED APPETITE. ACTIVE BOWEL SOUNDS. INCONTINENT OF URINE. FULL LIFT. ACCUCHECKS ACHS. Q2H TURN. CRUSH MEDICATIONS IN APPLESAUCE EXCEPT THYROID.IV R) FOREARM SL. Follow Up: GIRP FRIDAY?
--- NOTE | 2017-03-22 17:26 | NUR ---
PATIENT ALERT TO SELF. DISORIENTED TO PERSON/PLACE. APHASIC. NIHSS 9. FLAT AFFECT. GENERALIZED WEAKNESS. FULL LIFT. TRACE EDEMA TO EXTREMITIES. 1:1 FEEDER. SMALL BM THIS AM. INCONTINENT. GENERALIZED BRUISING TO ARMS/LEGS. R HAND SALINE LOCK. ACHS ACCU CHECKS WITH NO COVERAGE. CARDIAC DIET. DECREASED APPETITE. MEDS CRUSHED IN APPLESAUCE. PLAN IS FOR REHAB ON FRIDAY.
--- NOTE | 2017-03-23 07:05 | NUR ---
Significant Event: Oriented to person. Remains aphasic with weakness to upper and lower extremities. 2A full lift for transfers. VSS on 2L O2 NC. Takes medications crushed in applesauce except thyroid medication. ACHS accuchecks and no s/s insulin needed tonight. Needs 1:1 assistance during meals. Calm and cooperative with cares. Denies pain throughout night. Follow up:
--- NOTE | 2017-03-23 16:14 | NUR ---
Patient alert and disoriented. Follows commands. Flat affect but does seem to be talking more. NIHSS 10. On 2L of O2 this am but was able to be taken off once awake. Incontinent of bladder/bowel. Small bm this shift. Up to recliner. Full lift. Scattered bruising/scabs. R hand saline lock. Cardiac diet. 1:1 feeder. ACHS accu check. No coverage needed. Cooperative with cares.
--- NOTE | 2017-03-24 03:58 | NUR ---
Significant Event: Oriented to person. Appears to be less aphasic tonight compared to the past and is able to form more words when asked questions and was able to read some sentences and identify pictures during the stroke scale. NIHSS 10. Remains weak to upper and lower extremities. Follows commands. ACHS accuchecks with mild sliding scale. 1L O2 NC throughout the night. Medications crushed and given with applesauce except thyroid medication. 1:1 assistance at meal time. Poor appetite and intake. Right hand IV saline locked. 2A full lift for transfers. Frequent repositioning and incontinence. Calm and cooperative with cares. Follow up: [facility] Friday??
--- NOTE | 2017-03-24 20:04 | NUR ---
Significant Event: Patient alert to self only. Pupils 4mm, brisk. Denies numbness/tingling. NIHSS= 10. NSR on tele. VSS, on 1L O2. Incontinent of bowels and bladder, brief on. Very poor appetite. 1:1 feeder. Cardiac diet with regular liquids. Meds crushed with applesauce. Accucheks AC/HS. Scattered bruising noted. No changes in patient condition throughout shift. IV to R) hand, saline locked. Follow up:
--- NOTE | 2017-03-25 03:53 | NUR ---
Significant Event: Patient is alert and oriented to self. Drowsy at times. Follows commands. PERRLA. Slow, soft, aphasic speech. NIHSS-10. SB to NSR. Generalized weakness. 1+ edema to BLE. 2L of O2 per NC. Cardiac diet. Accu checks ACHS-mild SS. Takes pills crushed with applesauce. Incont of B/B. 2A full lift. R)hand PIV-sl'd. Follow up: GIRP TODAY.
--- NOTE | 2017-03-25 10:17 | NUR ---
A - NUTRITION F/U. A/O X 1. NO NEW LABS. DIET: CARDIAC W/ ENSURE COMPACT TID. INTAKE 0-25%. PT IS A 1:1 FEEDER. D - AT RISK W/ INADEQUATE ORAL INTAKE R/T DECREASED APPETITE AEB INTAKE RECORD. I - GOAL: ALTERNATE FEEDING ROUTE TO MEET PT NEEDS. M/E - CONSIDER TF W/ JEVITY 1.5 TO RUN AT 80 ML/HR X 12 HRS AT NOC = 1440 KCALS, 60 GM PROTEIN, 730 ML FREE H20. FLUSH W/ 175 ML H20 QID. WILL F/U IN 2-4 DAYS.
--- NOTE | 2017-03-25 14:28 | NUR ---
I got a call this am from the floor and Dr Cleaning came over to assess and does not want to take pt to rehab today. I left a vm with Mariann. I then spoke with nursing if they updated family and they did not. I called Britney her daughter in law and explained at this time they do not feel she can tolerate or particiapate for the intensive therapy. Britney stated she understands so I explained need to look at [facility] or [facility]. She states she spoke with [place] and would like [facility] as first choice then the [facility] in [place]. I then spoke with Mariann and she stated Dr Cleaning will relook at her tomorrow. I did call and left a vm with [facility] for [facility] but she was at lunch. I faxed the referral.
--- NOTE | 2017-03-25 16:18 | NUR ---
I left another Uyen at [place].
--- NOTE | 2017-03-25 19:53 | NUR ---
Significant Event: ALERT, ORIENT TO PERSON. SPONTANEOUS MOVEMENT OF ALL EXTREM. LEFT EXTREM WEAKNESS. STROKE SCALE DONE BY LUIS M SCORED 11. SATS 93% ON 2L OXYGEN. LAST BM ON 03/23. ACHS BGLU WITH SSI. CARDIAC DIET. MEDS CRUSHED IN APPLESAUCE EXCEPT SYNTHROID. LIKES TO EAT FRESH FRUIT. NUTRITION RECOMMENDING TUBE FEED. R)HAND SL. 2 ASSIST/LIFT UP TO CHAIR. URINE AND STOOL INCONTINENCE. 1:1 FEEDER. Follow up: TO RE-EVAL FOR GIRP??
--- NOTE | 2017-03-26 07:30 | NUR ---
Significant Event: Oriented to person. Weakness to extremities and follows commands. NIHSS 10. Denies numbness or tingling. VSS on 2L O2 throughout the night. ACHS accuchecks on mild scale. IV to right hand SL'd. Takes medications whole 1 at a time with water. 1:1 assistance at meal time. Frequent incontinence and repositioning. 2A full lift for transfers. Follow up:
--- NOTE | 2017-03-26 13:35 | NUR ---
I did get a call from Uyen at [facility] they will accept pt and can today or in the am. I also got a call from the swingbed in [place] they can accept as well. I spoke with Mariann and lo and pt is not ready for acute rehab yet. I then called up Britney her daughter in law so she can speak with Giovanni her and she states they want to go to [place] and her sister Jenna also agree's. When speaking with Britney I encouraged ther to call Uyen to discuss arrangements and get back to me. Britney called back and they will plan tomorrow for transfer at 10 am on . I also spoke with Uyen and faxed the orders and time for 10 am will work. I updated Dr Henning and nursing. WIll continue to follow and assist .
--- NOTE | 2017-03-26 18:00 | NUR ---
PATIENT ALERT AND ORIENTED TO SELF. FOLLOWS COMMANDS AT TIMES. 10 NIHSS. APHASIA IS GETTING BETTER, HAS CONVERSATION AT TIMES. 1-2L OF O2 THIS SHIFT. VSS. LUNGS CLEAR AND DIM. INCONTINENT OF URINE. [facility] THIS AM. ACHS ACCU CHECKS. 1:1 FEEDER. R HAND SALINE LOCKED. FULL LIFT. PILLS CRUSHED IN APPLESAUCE. PLANS TO GO TO [facility] TOMORROW.
[2017-03-26 21:29] LABS: CALCIUM 10.2 mg/dL (8.5-10.5); CREATININE 1.5 mg/dL (0.5-1.1); POTASSIUM 3.3 mMol/L (3.7-5.1)
[2017-03-26 21:30] LABS: ANION GAP 9.3 (10.0-19.0)
--- NOTE | 2017-03-27 02:43 | NUR ---
0215 PATIENT ARRIVES VIA BED FROM ICU. PATIENT IS ALERT TO SELF ONLY. SHE ARRIVES WITH RN. BEDSIDE REPORT OBTAINED. VS OBTAINED AND ARE STABLE. O2 PER NC IS AT 1 LPM BUT IS INCREASED TO 2LPM TO MAINTAIN O2 SAT >90%. PATIENT DENIES PAIN/DISCOMFORT. CALL LIGHT IS PLACED ON CHEST OF PATIENT. SHE REPORTS SHE IS AWARE OF HOW TO USE IT. BED ALARM IN PLACE.
--- NOTE | 2017-03-27 02:45 | NUR ---
PATIENT WAS TRANSFERRED TO PCU VIA BED AT 0210. ALL BELONGINGS SENT WITH PATIENT, ALONG WITH CHART. REPORT GIVEN VIA PHONE TO SYLVAIN CAMARA. PATIENT IS ALERT AND ORIENTED TO SELF ONLY. APHASIC. NIHSS OF 12. WEAK STRENGTH. FOLLOWS COMMANDS. PATIENT WENT INTO SVT AT 2044. ASYMPTOMATIC. CAME OUT OF SVT AT 2044. DR RUSH NOTIFIED. KCL RUNNING AT 83.3 R) HAND ALONG WITH D5 1/2 NS AT 100 ML/HR. PATIENT IS CURRENTLY IN NSR. WAS HYPOTENSIVE AFTER SVT EPISODE. 1L OF LR BOLUS GIVEN. PATIENT IS ON 1L OF OXYGEN VIA NC, TITRATED FROM 2L. INCONTINENT OF BOWEL AND BLADDER. BRUISES AND SCATTERED ABRASIONS. Q2 HERRON. PATIENT TAKES PILLS CRUSHED IN APPLESAUCE, OR SMALL PILLS WHOLE IN APPLESAUCE, EXCEPT SYNTHROID. ACCHUCHECKS ACHS. 2 ASSIST FULL LIFT.
[2017-03-27 03:31] LABS: BASOPHIL % 0.6 %; EOSINOPHIL # 0.1 K/uL (0.0-0.5); EOSINOPHIL % 1.5 %; HEMATOCRIT 31.2 % (33.0-46.0); IMMATURE GRANULOCYTE % 0.4 %; LYMPHOCYTE # 0.7 K/uL (0.8-4.0); LYMPHOCYTE % 15.2 %; MCH 34.6 pg (27.0-34.0); MCHC 32.1 gm/dL (32.0-36.5); MONOCYTE # 0.5 K/uL (0.0-1.0); MONOCYTE % 9.5 %; MPV 11.7 fl (9.4-12.4); NEUTROPHIL # (ANC) 3.5 K/uL (1.8-7.8); NEUTROPHIL % 72.8 %; NRBC % 0 /100WBC (0-0.00); PLATELET COUNT 258 K/uL (150-450); RBC 2.89 M/uL (3.50-5.50); RDW-CV 14.7 % (11.9-14.6); WBC 4.7 K/uL (4.0-11.0)
[2017-03-27 03:45] LABS: CALCIUM 9.6 mg/dL (8.5-10.5); CREATININE 1.2 mg/dL (0.5-1.1); POTASSIUM 3.5 mMol/L (3.7-5.1)
[2017-03-27 03:46] LABS: ANION GAP 8.5 (10.0-19.0)
--- NOTE | 2017-03-27 05:45 | NUR ---
Significant Event: PATIENT IS ALERT AND ORIENTED TO SELF ONLY. PLEASANT AND ANSWERS MOST QUESTIONS APPROPRIATELY. OBEYS MOST COMMANDS. WEAK BUT EQUAL COURTROOM REPORTER BILATERALLY. WIGGLES TOES. GENERALIZED EDEMA. RIGHT HAND +2 EDEMA FROM IV SITE INFILTRATE.KCL WAS INFUSING. SITE IS ELEVATED. NEW SITE OBTAINED TO LEFT FOREARM. KCL INFUSING AT 83.3ML/HR AND D51/2 INFUSING X1 LITER. INCONTINENT OF BOWEL AND BLADDER. TURN Q2H. FULL LIFT. LIKES TO BE UP IN CHAIR FOR MEALS. Follow up:
--- NOTE | 2017-03-27 12:51 | NUR ---
A - NUTRITION F/U. A/O X 1. K+ 3.5, GLU 158, BUN/COOKER SYRUP 38/1.2. DIET: CARDIAC W/ ENSURE COMPACT TID. INTAKE 0-25%. TO GO TO [facility] POSSIB[facility] TOMORROW. D - AT RISK W/ INADEQUATE ORAL INTAKE R/T DECREASED APPETITE AEB INTAKE RECORD. I - GOAL: 25-50% INTAKE. M/E - CONT TO ENCOURAGE ORAL INTAKE, WILL F/U IN 4-5 DAYS IF STILL HERE.
--- NOTE | 2017-03-27 16:26 | NUR ---
I rounded and saw that pt had moved floors. I spoke with nursing and she stated they have not notified family or [facility]. I then called up Ally and faxed updated notes and explained most likely will be ready tomorrow. I then phoned Britney, daughter in law and updated her and she wanted to talk with md. I spoke with Marnie NÚÑEZ and she will give her a call. I then got another call from Britney and they will be down so they can talk in person with Walker. I updated Marnie NÚÑEZ. I also spoke with pt and explained the plan is to go to [facility] for strengethening and she did agree. WIll continue to follow.
--- NOTE | 2017-03-27 18:48 | NUR ---
Significant Event: patient alert and oriented to self, able to follow commands at times. up to chair with 2 assist and use of lift, repositioned frequently when in chair and in bed. O2 sats 93-99% on 2l/nc. accuchecks 137, 135, 185. potassium 3.8, KCL po given. 1:1 feeder, note patient pockets food at times, oral cares done. bilateral calf pumps on. incontinent of urine, cares done, note groins slightly red, moisture barrier applied. pills crushed and given in applesauce. family at bedside, very supportive. Follow up: plans to transfer to [facility].
[2017-03-28 04:28] LABS: BASOPHIL % 0.7 %; EOSINOPHIL # 0.1 K/uL (0.0-0.5); EOSINOPHIL % 2.7 %; HEMATOCRIT 35.5 % (33.0-46.0); HEMOGLOBIN 11.1 g/dL (10.0-15.0); IMMATURE GRANULOCYTE % 0.9 %; LYMPHOCYTE # 0.7 K/uL (0.8-4.0); LYMPHOCYTE % 15.7 %; MCH 33.4 pg (27.0-34.0); MCHC 31.3 gm/dL (32.0-36.5); MCV 106.9 fl (83.0-98.0); MONOCYTE # 0.4 K/uL (0.0-1.0); MONOCYTE % 9.8 %; MPV 11.6 fl (9.4-12.4); NEUTROPHIL # (ANC) 3.1 K/uL (1.8-7.8); NEUTROPHIL % 70.2 %; NRBC % 0 /100WBC (0-0.00); PLATELET COUNT 224 K/uL (150-450); RBC 3.32 M/uL (3.50-5.50); RDW-CV 14.6 % (11.9-14.6); WBC 4.5 K/uL (4.0-11.0)
[2017-03-28 04:39] LABS: CALCIUM 9.6 mg/dL (8.5-10.5); POTASSIUM 3.9 mMol/L (3.7-5.1)
[2017-03-28 04:50] LABS: ANION GAP 9.9 (10.0-19.0); MAGNESIUM 2.8 mg/dL (1.8-2.6)
--- NOTE | 2017-03-28 04:59 | NUR ---
Significant event: Remains on 2L oxygen with sats in the 90's. I did get her to eat bites of food and about half of her supplement for supper. Turned every 2 hours with aloe to nesha and buttock areas. HS accucheck was 101. 1:! feeder Plan to DC to [facility] today possibly.
--- NOTE | 2017-03-28 12:20 | NUR ---
Significant Event: PATIENT ALERT, ORIENTED TO SELF, ABLE TO FOLLOW COMMANDS. BILATERAL UPPER AND LOWER EXTREMITIES WEAK, TRANSFER WITH 2 ASSIST AND USE OF LIFT. VS 98.1, 72, 16, 128/58, O2 SAT 92-95% ON 2L/NC. ACCUCHECKS 111 PRIOR TO BREAKFAST AND 158 AT LUNCH, PATIENT IS A 1:1 FEEDER, POOR APPETITE, FLUIDS ENCOURAGED. INCONTINENT OF URINE, MODERATE BM, CARES DONE, NOTE GROIN AREA SLIGHTLY RED, MOISTURE BARRIER APPLIED. DENIES PAIN WHEN ASKED. HAND GRASPS EQUAL BILATERAL/WEAK, PUPILS EQUAL BRISK. PATIENT PLEASANT WITH CARES. LOWER LEGS WITH BRUISING. Follow up:
--- NOTE | 2017-03-28 13:35 | NUR ---
D: PATIENT TRANSFERRED TO [facility], TRANSFER PACKET SENT. SEE TRANSFER NOTE. PATIENT ASSISTED TO W/C WITH LIFT AND 2 ASSIST, O2 APPLIED AT 2L/NC. ASSISTED TO VEHICLE VIA W/C AND TA ASSISTANCE, ACCOMPANIED BY [employer].
--- NOTE | 2017-03-28 16:44 | NUR ---
Followed patient for Yana today. Spoke to Marnie Escobar APRN at 0930 to see if patient will discharge today as [facility] Uyen has already called and asked. Marnie sent a message to Dr. Henning and will wait to hear back. I spoke to Uyen and let her know I would contact her as soon as I had word of discharge plan. Notified by charge nurse Reyna at [address] Henning has completed discharge orders. I called Uyen at [facility] at [phone] and we scheduled the transport time for 1300 today. At 1130 I returned to the floor and faxed patient's discharge orders to Uyen at [phone]. I also called patient's daughter in law Britney and informed her of the discharge plan for 1300 today. Britney was very appreciative of the call and states the care and communication from staff here has been wonderful. Notified patient's nurse Calista of plan for discharge. Nurse to Nurse number given to Calista. At 1350 I had a call from Uyen clarifying if patient is to be on a special diet of thickened liquids and mechanical soft. I contacted Calista and she states no patient is on a cardiac diet, but is a one to one feeder. I called Uyen back and reported this to her. No other needs at this time.
== END 2017-03-28 13:37 | disposition swing bed (61) | DRG 64 ==
LOC: GNTU 18:42 → GPCU 19:53 → GICU 19:53 → GPCU 03-27 02:07
PROVIDERS: Family Medicine; Internal Medicine; ADMIT Internal Medicine
DX: I63.8 Other cerebral infarction (principal); E03.5 Myxedema coma; G93.41 Metabolic encephalopathy; N17.9 Acute kidney failure, unspecified; I69.354 Hemiplegia and hemiparesis following cerebral infarction affecting left non-dominant side; E87.0 Hyperosmolality and hypernatremia; E44.0 Moderate protein-calorie malnutrition; R47.01 Aphasia; I10 Essential (primary) hypertension; I49.5 Sick sinus syndrome; E11.9 Type 2 diabetes mellitus without complications; M62.81 Muscle weakness (generalized); E66.01 Morbid (severe) obesity due to excess calories; Z68.37 Body mass index [BMI] 37.0-37.9, adult; I51.7 Cardiomegaly; M48.00 Spinal stenosis, site unspecified; E87.6 Hypokalemia; Z79.82 Long term (current) use of aspirin; G20 Parkinson's disease; F02.80 Dementia in other diseases classified elsewhere, unspecified severity, without behavioral disturbance, psychotic disturbance, mood disturbance, and anxiety
CPT/HCPCS: C9113; J1644; J1720; J3480; J7030; J7040; J7050; J7120